=== PATIENT | female | born 1990 | race Caucasian/White ===

== ENCOUNTER 2016-10-22 00:12 | Emergency (ER) | payer OTHER ==
[~2016-10-22] VITALS: Ht 165.1 cm; Wt 80.7 kg
[~2016-10-22 00:12] MED LIST: AUGMENTIN 875 M1 TAB PO; BACTRIM DS TAB1 EACH PO; BLM PO; DELTASONE20 MG PO; MOTRIN 600 MG600 MG PO; NORCO 5-325 TA1 EACH PO; PERCOCET 325 MG1 TA2 PO; PREDNISONE 10MG10 M1 PO; PREDNISONE 20MG20 MG PO; PYRIDIUM100 M1 PO; TRAMADOL50 MG PO; ZITHROMAX Z-PA250 M1 PO; ZITHROMAX250 M2 PO
--- NOTE | 2016-10-22 02:23 | ED INFLUENZA/URI COMPLAINT ---
History of Present Illness General Chief Complaint: Sore Throat, Dental Pain Stated Complaint: SORE THROAT,AND EAR PAIN,FEVER? Source: patient Exam Limitations: no limitations Vital Signs & Intake/Output Vital Signs & Intake/Output Vital Signs Date Time Temp Pulse Resp B/P Pulse O2 O2 Flow FiO2 Ox Delivery Rate 10/22 0227 97.0 88 16 111/69 98 Room Air Allergies Coded Allergies: MDX - Cefazolin (Cefazolin) (Intermediate, RASH 11/02/13) Reconcile Medications Amoxicillin/Potassium Clav (Augmentin 875-125 Tablet) 875 MG-125 MG TABLET 1 TAB PO BID EAR INFECTION Amoxicillin/Potassium Clav (Augmentin 875-125 Tablet) 875 MG-125 MG TABLET 1 TAB PO BID EAR INFECTION/PHARYNGITIS Azithromycin (Zithromax Z-Martin) 250 MG CAP 1 PAC PO DAILY SORE THROAT Azithromycin (Zithromax) 250 MG TABLET 1 DP PO AD COPD/BRONCHITIS 2 the first day followed by 1 for days 2-5 Hydrocodone/Acetaminophen ([place] 5-325 Tablet) 1 EACH TABLET 1 TAB PO Q4-6 PRN PRN SORE THROAT Ibuprofen 600 MG TABLET 1 TAB PO TID PAIN with food OXYCODONE HCL/ACETAMINOPHEN (Percocet 5-325 MG Tablet) 325 MG/5 MG TAB 1 TAB PO Q4-6 PRN PRN PAIN Phenazopyridine HCl (Pyridium) 100 MG TABLET 1-2 TAB PO TID PRN UTI Prednisone (Deltasone) 20 MG TABLET 2 TAB PO DAILY ASTHMA Prednisone 50 MG TABLET 1 TAB PO DAILY INFLAMMATION Prednisone 10 MG TABLET 0 PO DAILY INFLAMMATION DAY 1: 4 TABS PO QD DAY 2: 3 TABS PO QD DAY 3: 2 TABS PO QD DAY 4: 1 TABS PO QD Prednisone 20 MG TAB 1 TAB PO AD INFLAMMATION 3 TABS PO DAY 1-3 2 TABS PO DAY 4-6 1 TAB PO DAY 7-9 Sulfamethoxazole/Trimethoprim (Bactrim Ds Tablet) 800 MG-160 MG TABLET 1 TAB PO BID URINE INFECTION TRAMADOL HCL (Tramadol) 50 MG TABLET 1-2 TAB PO Q6P PRN PAIN Triage Nurses Notes Reviewed? yes Onset: Gradual Duration: day(s): Timing: recent history Severity: mild, moderate Prior Episodes/Possible Cause: "I've had strep throat before... this feels the same." No Modifying Factors: none Modifying Factors: Improves With: medication. Associated Symptoms: throat pain, left ear pain. HPI: 25 yo woman h/o of strep throat presents with sore throat and left ear pain x 1 day. No fever, chills, nausea, vomiting, diarrhea, "but it hurts when I swallow." Past History Travel History Traveled to [place] past 21 day No Medical History Any Pertinent Medical History? see below for history Neurological: NONE EENT: NONE Cardiovascular: NONE Respiratory: NONE Gastrointestinal: NONE Hepatic: NONE Renal: NONE Musculoskeletal: NONE Psychiatric: NONE Endocrine: NONE Blood Disorders: NONE Cancer(s): NONE Surgical History Surgical History: non-contributory Psychosocial History What is your primary language [place] Family History Hx Contributory? No Review of Systems Review of Systems Constitutional: Reports: no symptoms. EENTM: Reports: no symptoms. Respiratory: Reports: no symptoms. Cardiovascular: Reports: no symptoms. GI: Reports: no symptoms. Genitourinary: Reports: no symptoms. Musculoskeletal: Reports: no symptoms. Skin: Reports: no symptoms. Neurological/Psychological: Reports: no symptoms. Hematologic/Endocrine: Reports: no symptoms. Immunologic/Allergic: Reports: no symptoms. All Other Systems: Reviewed and Negative Physical Exam Physical Exam General Appearance: well developed/nourished, mild distress Head: atraumatic, normal appearance Eyes: Bilateral: normal appearance. Ears, Nose, Throat: pharyngeal erythema, left tm w/ erythema. Neck: normal inspection, supple, full range of motion Respiratory: normal breath sounds, chest non-tender, no respiratory distress, quiet respiration, lungs clear Cardiovascular: regular rate/rhythm Gastrointestinal: normal bowel sounds, soft, non-tender, no organomegaly Back: normal inspection, normal range of motion Extremities: normal inspection Neurologic/Psych: no motor/sensory deficits, awake, alert, oriented x 3 Skin: intact, normal color, warm/dry Core Measures Severe Sepsis Present: No Septic Shock Present: No Progress Differential Diagnosis: strep throat, vs ear infection. Plan of Care: Current Medications Sig/Smith Start time Last Medication Dose Stop Time Status Admin Amoxicillin/ 1,000 MG ONCE ONE 10/22 299 UNVr Clavulanate Potassium 10/22 300 (Augmentin) Ibuprofen 800 MG ONCE ONE 10/22 299 UNVr (Motrin) 10/22 300 Prednisone 40 MG ONCE ONE 10/22 299 UNVr 01/03 0301 Initial ED EKG: none Departure Departure Disposition: HOME OR SELF CARE Condition: Stable Clinical Impression Primary Impression: Pharyngitis Secondary Impressions: Otitis media Referrals: GABRIEL VANN APRN (PCP/Family) Referred to [facility] as new patient No Departure Forms: Customer Survey General Discharge Information Prescriptions: Current Visit Scripts Amoxicillin/Potassium Clav (Augmentin 875-125 Tablet) 1 TAB PO BID #20 TAB Ibuprofen 1 TAB PO TID #30 TAB with food Prednisone 1 TAB PO DAILY #4 TAB Amoxicillin/Potassium Clav (Augmentin 875-125 Tablet) 1 TAB PO BID #20 TAB
[2016-10-22 02:27] VITALS: BP 111/69
[2016-10-22] MEDS ORDERED: PREDNISONE50 M1 PO (02:55)
[2016-10-22] MEDS ORDERED: AUGMENTIN 875-1 EACH PO (02:55)
[2016-10-22] MEDS ORDERED: IBUPROFEN600 M1 PO (02:55)
== END 2016-10-22 03:20 ==
LOC: ERH 00:12
DX: J02.9 Acute pharyngitis, unspecified (principal); H66.92 Otitis media, unspecified, left ear
CPT/HCPCS: J3490

== ENCOUNTER 2016-11-15 18:19 | Emergency (ER) | payer OTHER ==
[~2016-11-15] VITALS: Ht 165.1 cm; Wt 80.3 kg
[~2016-11-15 18:19] MED LIST changes: +AUGMENTIN 875-1 EACH PO; +IBUPROFEN600 M1 PO; +PREDNISONE50 M1 PO
--- NOTE | 2016-11-15 20:08 | ED GENERAL ADULT ---
History of Present Illness General Chief Complaint: General Adult Stated Complaint: "I NEED ANTIBOTIC" Source: patient Exam Limitations: no limitations Vital Signs & Intake/Output Vital Signs & Intake/Output Vital Signs Date Time Temp Pulse Resp B/P Pulse O2 O2 Flow FiO2 Ox Delivery Rate 11/15 2030 96.5 78 18 120/62 100 Room Air 11/15 2011 Room Air 11/15 1828 98.0 78 20 123/67 99 Room Air Room Air ED Intake and Output 11/16 0000 11/15 1200 Intake Total Output Total Balance Patient 177 lb Weight Allergies Coded Allergies: cefazolin (Intermediate, RASH 10/22/16) Reconcile Medications Amoxicillin/Potassium Clav (Augmentin 875-125 Tablet) 875 MG-125 MG TABLET 1 TAB PO BID EAR INFECTION/PHARYNGITIS Augmentin (Augmentin 500-125 Tablet) 500 MG-125 MG TABLET 1 TAB PO BID IFN Azithromycin (Zithromax Z-Martin) 250 MG CAP 1 PAC PO DAILY SORE THROAT Azithromycin (Zithromax) 250 MG TABLET 1 DP PO AD COPD/BRONCHITIS 2 the first day followed by 1 for days 2-5 Hydrocodone/Acetaminophen ([place] 5-325 Tablet) 1 EACH TABLET 1 TAB PO Q4-6 PRN PRN SORE THROAT Ibuprofen 600 MG TABLET 1 TAB PO TID PAIN with food OXYCODONE HCL/ACETAMINOPHEN (Percocet 5-325 MG Tablet) 325 MG/5 MG TAB 1 TAB PO Q4-6 PRN PRN PAIN Phenazopyridine HCl (Pyridium) 100 MG TABLET 1-2 TAB PO TID PRN UTI Prednisone (Deltasone) 20 MG TABLET 2 TAB PO DAILY ASTHMA Prednisone 50 MG TABLET 1 TAB PO DAILY INFLAMMATION Prednisone 10 MG TABLET 0 PO DAILY INFLAMMATION DAY 1: 4 TABS PO QD DAY 2: 3 TABS PO QD DAY 3: 2 TABS PO QD DAY 4: 1 TABS PO QD Prednisone 20 MG TAB 1 TAB PO AD INFLAMMATION 3 TABS PO DAY 1-3 2 TABS PO DAY 4-6 1 TAB PO DAY 7-9 Sulfamethoxazole/Trimethoprim (Bactrim Ds Tablet) 800 MG-160 MG TABLET 1 TAB PO BID URINE INFECTION TRAMADOL HCL (Tramadol) 50 MG TABLET 1-2 TAB PO Q6P PRN PAIN Triage Note: PT TO ED "I HAD STREP THROAT 4 WEEKS AGO AND EAR INFECTION, FELT BETTER AND STOPPED MCC THROUGH NOW FEELS LIKE IT'S COMING BACK, STARTED TO TAKE THE REMAINDER OF THE AMOXICILLIN". "WOULD LIKE ANOTHER 5 DAYS WORTH PRESCRIBED FOR A FULL COURSE OF ANTIBIOTICS". Triage Nurses Notes Reviewed? yes Onset: Abrupt Duration: day(s): Timing: recent history : No Patient currently breastfeeds: No HPI: 11/15/16 8:17 PM 25-year-old female complains of sore throat and ear pain. The patient states that she was seen earlier in the month and was given antibiotic which she only took a few days. She says now the symptoms started to come back and she took the rest of the antibiotic. Currently she is essentially asymptomatic although she has a mild sore throat. The onset of the symptoms were abrupt, the duration has been several days, the severity is significant as her symptoms required to come to the emergency department, she does not smoke or drink. On physical exam she does have an injected pharynx. She has had a partial course of Augmentin. She was given an additional 5 days of Augmentin will follow-up with her doctor next week or return to the emergency department if symptoms return Past History Travel History Traveled to [place] past 21 day No Medical History Any Pertinent Medical History? 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 No Review of Systems Review of Systems Constitutional: Denies: fever. EENTM: Reports: throat pain. Respiratory: Denies: short of breath. Cardiovascular: Denies: chest pain. GI: Denies: abdominal pain. Genitourinary: Reports: no symptoms. Musculoskeletal: Reports: no symptoms. Skin: Reports: see HPI. Neurological/Psychological: Reports: no symptoms. Hematologic/Endocrine: Reports: no symptoms. Immunologic/Allergic: Reports: no symptoms. Physical Exam Physical Exam General Appearance: alert, awake, anxious, mild distress Head: atraumatic (facial scarring) Eyes: Bilateral: normal appearance, PERRL, EOMI. Ears, Nose, Throat: pharyngeal erythema Neck: normal inspection, supple, full range of motion Respiratory: normal breath sounds, chest non-tender, no respiratory distress Cardiovascular: regular rate/rhythm Peripheral Pulses: 4+ radial (R), 4+ radial (L) Gastrointestinal: soft, non-tender Back: normal inspection Extremities: normal range of motion Neurologic/Psych: no motor/sensory deficits, awake, alert, oriented x 3 Skin: intact, facial scarring Core Measures ACS in differential dx? No CVA/TIA Diagnosis: No Severe Sepsis Present: No Septic Shock Present: No Progress Differential Diagnoses I considered the following diagnoses in my evaluation of the patient: [ Pharyngitis, retropharyngeal abscess, peritonsillar abscess, otitis media, viral syndrome, [place]] Plan of Care: Augmentin as directed. Follow-up with ENT if not better in 7 days. Initial ED EKG: none Departure Departure Disposition: STILL A PATIENT Condition: Stable Clinical Impression Primary Impression: Pharyngitis Referrals: GABRIEL VANN APRN (PCP/Family) Departure Forms: Customer Survey General Discharge Information Prescriptions: Current Visit Scripts Augmentin (Augmentin 500-125 Tablet) 1 TAB PO BID #10 TAB Critical Care Note Critical Care Note Critical Care Time: non-applicable
[2016-11-15] MEDS ORDERED: AUGMENTIN 500-1 EACH PO (20:25)
[2016-11-15 20:31] VITALS: BP 120/62
== END 2016-11-15 20:32 ==
LOC: ERH 18:19
DX: J02.9 Acute pharyngitis, unspecified (principal)